=== PATIENT | male | born 1965 | race Caucasian/White ===

== ENCOUNTER → 2019-05-20 | Day surgery (SDC) | payer OTHER ==
[~2019-05-20] VITALS: Ht 180.3 cm; Wt 99.8 kg
[~2019-05-20] MED LIST: ATENOLOL25 MG PO; CARVEDILOL25 MG PO; CEPHALEXIN500 M1 PO; FENOFIBRATE160 MG PO; LISINOPRIL20 MG PO; LISINOPRIL5 MG PO; MEDROL DOSEPAK4 MG PO; METFORMIN HYDR500 MG PO; NORCO 5-325 TA1 EACH PO; OMEPRAZOLE40 MG PO; SIMVASTATIN20 MG PO; SIMVASTATIN40 MG PO; TAGAMET HB200 M1 PO
--- NOTE | ~2019-05-20 | O ---
[place], [place] OPERATIVE NOTE NAME: MAURILIO MCCOY UNIT #: [id number] ROOM: DOCTOR: MURRAY GRIFFITHS MD BIRTHDATE: [birth year] DOS: PREOPERATIVE DIAGNOSIS: Cataract, right eye. POSTOPERATIVE DIAGNOSIS: Cataract, right eye. OPERATION: Extracapsular cataract extraction by phacoemulsification with posterior chamber intraocular lens implantation, right eye. ANESTHESIA: Monitored standby. OPERATIVE FINDINGS AND PROCEDURE: 2% Xylocaine topical anesthetic gel was applied to the eye in the preop area. The patient was taken to the operating room and prepped and draped in the standard fashion for sterile intraocular surgery. A time out procedure was performed verifying correct patient, correct site and corrects lens with Brice Griffiths M.D. The operating microscope was swung into position and the lid speculum was inserted. Using a Mi paracentesis blade, a paracentesis was made through clear cornea. Shugarcaine was injected into the anterior chamber followed by the instillation of air. Next, Trypan blue was painted on the anterior capsule. Viscoelastic was used to fill the anterior chamber. Using a metal keratome a 2.4 mm self-sealing clear corneal cataract incision was made temporally at the limbus. Using a pre-bent 25 gauge cystotome needle, a standard continuous curvilinear capsulorrhexis was performed. The anterior capsule was removed with forceps. The lens nucleus was hydrodissected and phacoemulsified in the posterior chamber. Cortical material was removed with the irrigation aspiration hand piece and the posterior capsule was then polished with a curet under irrigation. The posterior chamber and capsular bag were filled with viscoelastic. An intraocular lens manufactured by [employer], Model AU00T0, 19.5 diopters was then inserted into the posterior chamber. There was a sudden released from the preloaded cartridge upon insertion resulting in a large break in the posterior capsule without forward movement of the vitreous. The lens was positioned with Sinskey hook and spatula so that the haptics were in the sulcus and the optic was captured. Miochol was injected to induce myosis of the pupil. Viscoelastic was removed using the irrigation aspiration handpiece. The anterior chamber was filled with balanced salt solution through the paracentesis. Both the paracentesis site and cataract incisions were hydrated with BSS and verified to be water-tight and self-sealing. Cefuroxime 1 mg/0.1 mL was injected into the anterior chamber through the paracentesis site. The incision checked to be water-tight using a Weck-Sandra sponge. The integrity of the cataract wound and ocular tension were checked. Lid speculum and drapes were removed. The patient was transferred from the operating room to the recovery room in satisfactory condition. [place], [place] OPERATIVE NOTE NAME: MAURILIO MCCOY UNIT #: [id number] ROOM: DOCTOR: MURRAY GRIFFITHS MD BIRTHDATE: [birth year] MURRAY GRIFFITHS MD CM:OPRECORD:OPERATIVE NOTE [id number] MURRYA GRIFFITHS MD 05/20/19 1302 interface
[2019-05-20 08:20] VITALS: BP 117/56
[2019-05-20 10:23] VITALS: BP 121/68
[2019-05-20 10:35] VITALS: BP 117/77
[2019-05-20 10:43] VITALS: BP 114/69
== END | disposition home or self-care (01) ==
LOC: SDC 05-15 09:30
DX: H25.811 Combined forms of age-related cataract, right eye (principal); I10 Essential (primary) hypertension; J44.9 Chronic obstructive pulmonary disease, unspecified; E11.9 Type 2 diabetes mellitus without complications; F17.210 Nicotine dependence, cigarettes, uncomplicated; Z88.8 Allergy status to other drugs, medicaments and biological substances; Z79.899 Other long term (current) drug therapy; Z79.84 Long term (current) use of oral hypoglycemic drugs; Z98.890 Other specified postprocedural states

== ENCOUNTER → 2019-06-16 | Outpatient (CLI) | payer OTHER | END | disposition home or self-care (01) | LOC: LAB 08:37 | DX: R53.83 Other fatigue (principal); R79.89 Other specified abnormal findings of blood chemistry ==

== ENCOUNTER 2019-07-01 08:23 | Emergency (ER) | payer OTHER ==
[~2019-07-01] VITALS: Ht 180.3 cm; Wt 102.1 kg
== END 2019-07-01 09:57 | disposition home or self-care (01) ==
LOC: ED 08:23
DX: J44.1 Chronic obstructive pulmonary disease with (acute) exacerbation (principal); I10 Essential (primary) hypertension; E11.9 Type 2 diabetes mellitus without complications; G89.29 Other chronic pain; F17.200 Nicotine dependence, unspecified, uncomplicated; Z88.6 Allergy status to analgesic agent; Z79.899 Other long term (current) drug therapy

== ENCOUNTER → 2020-06-07 | Outpatient (CLI) | payer OTHER ==
[2020-06-07 11:47] LABS: BASO % 0.5 % (0.0-1.0); EOS # 0.1 10*3/uL (0.0-0.4); EOS % 1.5 % (1.0-4.0); HEMATOCRIT 43.2 % (42.0-52.0); LYMPH # 1.3 10*3/uL (1.3-4.4); MEAN CELL VOLUME 86.7 fl (80.0-94.0); MEAN CORPUSCULAR HGB 29.5 pg (27.0-31.0); MEAN PLATELET VOLUME 9.8 fl (9.6-12.3); MONO # 0.4 10*3/uL (0.1-1.0); MONO % 7.2 % (3.0-9.0); NEUT % 68.1 % (47.0-73.0); PLATELET COUNT AUTOMATED 237 10*3/uL (130-400); RED BLOOD COUNT 4.98 10*6/uL (4.50-5.90); RED CELL DISTRI WIDTH 11.7 % (0-14.5); RETICULOCYTE % 1.49 % (0.50-2.50); WHITE BLOOD COUNT 5.8 10*3/uL (4.8-10.8)
[2020-06-07 11:54] LABS: BILIRUBIN Negative (Negative); BLOOD Negative (Negative); CLARITY Cloudy (Clear); COLOR Yellow (Yellow); GLUCOSE 3+ (Negative); KETONE Negative (Negative); LEUKO ESTERASE Negative (Negative); NITRITE Negative (Negative)
[2020-06-07 11:57] LABS: ALBUMIN 3.7 gm/dl (3.1-4.5); BUN 9 mg/dl (7-24); CHLORIDE 105 mmol/L (98-107); SODIUM 139 mmol/L (136-145)
[2020-06-07 12:16] LABS: BACTERIA 2+
[2020-06-07 12:17] LABS: ALKALINE PHOSPHATASE 44 U/L (45-117); CHOLESTEROL 186 mg/dL (<200); CREATININE 0.99 mg/dL (0.70-1.30); GAMMA GLUTAMYL TRANSPEPTIDASE 92 U/L (15-85); HDL CHOLESTEROL 43 mg/dl (40-60); IRON 79 ug/dL (65-175); LDL CHOLESTEROL 74 mg/dL (9-159); SGOT/AST 22 IU/L (3-35); SGPT/ALT 20 U/L (12-78); TOTAL IRON BINDING CAPACITY 420 ug/dl (250-450); TOTAL PROTEIN 7.5 gm/dL (6.4-8.2); TRIGLYCERIDES 343 mg/dl (<150); VLDL CHOLESTEROL 69 mg/dL (6-40)
== END ==
LOC: LAB 11:25
PROVIDERS: ATTEND Family Medicine
DX: E11.9 Type 2 diabetes mellitus without complications (principal); E78.5 Hyperlipidemia, unspecified; R53.83 Other fatigue; R79.89 Other specified abnormal findings of blood chemistry

== ENCOUNTER 2020-11-11 12:14 | Emergency (ER) | payer OTHER ==
[~2020-11-11] VITALS: Ht 180.3 cm; Wt 99.8 kg
[2020-11-11] MEDS ORDERED: IBUPROFEN600 MG PO (15:10)
== END 2020-11-11 15:18 | disposition home or self-care (01) ==
LOC: ED 12:14
DX: S46.912A Strain of unspecified muscle, fascia and tendon at shoulder and upper arm level, left arm, initial encounter (principal); F17.200 Nicotine dependence, unspecified, uncomplicated; Z88.5 Allergy status to narcotic agent; X50.1XXA Overexertion from prolonged static or awkward postures, initial encounter; Y93.89 Activity, other specified; Y92.69 Other specified industrial and construction area as the place of occurrence of the external cause; Y99.9 Unspecified external cause status

== ENCOUNTER → 2020-11-28 | Outpatient (CLI) | payer OTHER ==
[~2020-11-28] MED LIST changes: +IBUPROFEN600 MG PO
== END | disposition home or self-care (01) ==
LOC: MRI 09:00
PROVIDERS: ATTEND Family Medicine
DX: S46.912A Strain of unspecified muscle, fascia and tendon at shoulder and upper arm level, left arm, initial encounter (principal); X58.XXXA Exposure to other specified factors, initial encounter; Y93.89 Activity, other specified; Y92.89 Other specified places as the place of occurrence of the external cause; Y99.8 Other external cause status

== ENCOUNTER 2021-06-05 19:45 | Emergency (ER) | payer OTHER ==
[~2021-06-05] VITALS: Wt 97.5 kg
== END 2021-06-05 21:27 | disposition home or self-care (01) ==
LOC: ED 19:45
DX: S05.02XA Injury of conjunctiva and corneal abrasion without foreign body, left eye, initial encounter (principal); W22.8XXA Striking against or struck by other objects, initial encounter; Y93.89 Activity, other specified; Y92.89 Other specified places as the place of occurrence of the external cause; Y99.8 Other external cause status

== ENCOUNTER → 2021-06-06 | Outpatient (CLI) | payer OTHER | END | disposition home or self-care (01) | LOC: LAB 14:16 | PROVIDERS: ATTEND Family Medicine | DX: E10.9 Type 1 diabetes mellitus without complications (principal) ==

== ENCOUNTER → 2021-08-28 | Outpatient (CLI) | payer OTHER ==
[2021-08-28 10:25] LABS: BASO % 0.6 % (0.0-1.0); EOS # 0.1 10*3/uL (0.0-0.4); EOS % 2.7 % (1.0-4.0); HEMATOCRIT 41.1 % (42.0-52.0); LYMPH # 1.3 10*3/uL (1.3-4.4); LYMPH % 27.6 % (27.0-41.0); MEAN CELL VOLUME 85.6 fl (80.0-94.0); MEAN PLATELET VOLUME 9.8 fl (9.6-12.3); MONO # 0.5 10*3/uL (0.1-1.0); MONO % 9.4 % (3.0-9.0); NEUT # 2.8 10*3/uL (2.3-7.9); NEUT % 59.1 % (47.0-73.0); PLATELET COUNT AUTOMATED 224 10*3/uL (130-400); RED CELL DISTRI WIDTH 12.3 % (0-14.5); WHITE BLOOD COUNT 4.8 10*3/uL (4.8-10.8)
[2021-08-28 11:02] LABS: ALBUMIN 3.9 gm/dl (3.1-4.5); BUN 13 mg/dl (7-24); CHLORIDE 104 mmol/L (98-107); POTASSIUM 4.4 mmol/L (3.5-5.1); SODIUM 138 mmol/L (136-145)
[2021-08-28 11:28] LABS: ALKALINE PHOSPHATASE 38 U/L (45-117); CREATININE 0.73 mg/dL (0.70-1.30); IRON 107 ug/dL (65-175); SGOT/AST 26 IU/L (3-35); SGPT/ALT 36 U/L (12-78); TOTAL IRON BINDING CAPACITY 438 ug/dl (250-450); TOTAL PROTEIN 7.6 gm/dL (6.4-8.2)
== END | disposition home or self-care (01) ==
LOC: LAB 09:50
PROVIDERS: ATTEND Family Medicine
DX: R79.89 Other specified abnormal findings of blood chemistry (principal); R53.83 Other fatigue; E11.9 Type 2 diabetes mellitus without complications

== ENCOUNTER → 2022-03-02 | Outpatient (CLI) | payer OTHER | END | disposition home or self-care (01) | LOC: COVID19 10:18 | PROVIDERS: ATTEND Internal Medicine | DX: Z20.822 Contact with and (suspected) exposure to COVID-19 (principal) ==

== ENCOUNTER → 2022-03-26 | Outpatient (CLI) | payer OTHER, MEDICAID | END | disposition home or self-care (01) | LOC: COVID19 08:51 | PROVIDERS: ATTEND Internal Medicine | DX: Z20.822 Contact with and (suspected) exposure to COVID-19 (principal) ==

== ENCOUNTER → 2022-07-16 | Outpatient (CLI) | payer OTHER, MEDICAID ==
[2022-07-16 09:20] LABS: BASO % 0.4 % (0.0-1.0); EOS # 0.1 10*3/uL (0.0-0.4); EOS % 2.2 % (1.0-4.0); HEMATOCRIT 39.3 % (42.0-52.0); LYMPH # 0.8 10*3/uL (1.3-4.4); LYMPH % 16.2 % (27.0-41.0); MEAN CELL VOLUME 86.4 fl (80.0-94.0); MEAN CORPUSCULAR HGB 29.5 pg (27.0-31.0); MEAN CORPUSCULAR HGB CONC 34.1 g/dl (33.0-37.0); MEAN PLATELET VOLUME 8.8 fl (9.6-12.3); MONO # 0.4 10*3/uL (0.1-1.0); MONO % 8.1 % (3.0-9.0); NEUT # 3.7 10*3/uL (2.3-7.9); NEUT % 72.9 % (47.0-73.0); PLATELET COUNT AUTOMATED 216 10*3/uL (130-400); RED BLOOD COUNT 4.55 10*6/uL (4.50-5.90); RED CELL DISTRI WIDTH 13.1 % (0-14.5); WHITE BLOOD COUNT 5.1 10*3/uL (4.8-10.8)
[2022-07-16 09:40] LABS: ALKALINE PHOSPHATASE 59 U/L (46-116); BETA-HCG, QUANT < 3.0 mIU/mL (<1); BUN 14 mg/dl (9-23); CHLORIDE 105 mmol/L (98-107); LDH 141 U/L (120-246); POTASSIUM 3.6 mmol/L (3.4-5.1); SGPT/ALT 31 U/L (10-49); TOTAL PROTEIN 6.8 gm/dL (6.0-8.0)
== END | disposition home or self-care (01) ==
LOC: US 07:30 → LAB 07:46
PROVIDERS: Urology; ATTEND Family Medicine
DX: D40.0 Neoplasm of uncertain behavior of prostate (principal); Z12.5 Encounter for screening for malignant neoplasm of prostate; N43.2 Other hydrocele; K82.4 Cholesterolosis of gallbladder; N32.3 Diverticulum of bladder; Z90.49 Acquired absence of other specified parts of digestive tract

== ENCOUNTER → 2022-09-12 | Day surgery (SDC) | payer OTHER ==
[~2022-09-12] VITALS: Ht 180.3 cm; Wt 88.5 kg
[~2022-09-12] MED LIST changes: +CYCLOBENZAPRINE10 MG PO; +ENTRESTO 24 MG1 EACH PO; +NOVOLOG MIX 70/33 ML SC; +TRULICITY0.75 MG/0. SC
[2022-09-12 10:15] VITALS: BP 116/64
[2022-09-12 11:57] VITALS: BP 113/75
[2022-09-12 12:12] VITALS: BP 115/76
[2022-09-12 12:26] VITALS: BP 111/76
== END | disposition home or self-care (01) ==
LOC: SDC 09-07 11:45
PROVIDERS: ATTEND Ophthalmology
DX: E11.36 Type 2 diabetes mellitus with diabetic cataract (principal); H25.812 Combined forms of age-related cataract, left eye; I10 Essential (primary) hypertension; I25.10 Atherosclerotic heart disease of native coronary artery without angina pectoris; J44.9 Chronic obstructive pulmonary disease, unspecified; Z87.891 Personal history of nicotine dependence; Z88.8 Allergy status to other drugs, medicaments and biological substances

== ENCOUNTER 2023-08-27 10:27 | Inpatient (IN) | payer OTHER ==
[~2023-08-27] VITALS: Ht 180.3 cm; Wt 88.5 kg
[2023-08-27 10:34] VITALS: BP 104/64
[2023-08-27 10:54] LABS: BASO % 0.3 % (0.0-1.0); EOS # 0.1 10*3/uL (0.0-0.4); HEMATOCRIT 45.5 % (42.0-52.0); LYMPH # 0.9 10*3/uL (1.3-4.4); MEAN CELL VOLUME 90.1 fl (80.0-94.0); MEAN CORPUSCULAR HGB 30.1 pg (27.0-31.0); MEAN CORPUSCULAR HGB CONC 33.4 g/dl (33.0-37.0); MEAN PLATELET VOLUME 9.2 fl (9.6-12.3); MONO # 0.6 10*3/uL (0.1-1.0); MONO % 7.3 % (3.0-9.0); NEUT # 6.2 10*3/uL (2.3-7.9); NEUT % 79.8 % (47.0-73.0); PLATELET COUNT AUTOMATED 238 10*3/uL (130-400); RED BLOOD COUNT 5.05 10*6/uL (4.50-5.90); RED CELL DISTRI WIDTH 11.8 % (0-14.5); WHITE BLOOD COUNT 7.8 10*3/uL (4.8-10.8)
[2023-08-27 11:04] LABS: ACT PARTIAL THROMBO TIME 27.5 SECONDS (20.0-32.1)
[2023-08-27 11:12] LABS: ALKALINE PHOSPHATASE 56 U/L (46-116); BUN 18 mg/dl (9-23); CHLORIDE 101 mmol/L (98-107); LIPASE 32 U/L (12-53); POTASSIUM 4.3 mmol/L (3.4-5.1); SGPT/ALT 24 U/L (5-49); TOTAL PROTEIN 7.5 gm/dL (6.0-8.0)
[2023-08-27] MEDS ORDERED: ENTRESTO 49 MG1 EACH PO (11:28)
[2023-08-27] MEDS ORDERED: ASPIRIN81 M1 PO (11:29)
[2023-08-27] MEDS ORDERED: ALDACTONE25 M1 PO (11:30)
[2023-08-27] MEDS ORDERED: JARDIANCE10 MG PO (11:30)
[2023-08-27] MEDS ORDERED: CLARITIN10 MG PO (11:31)
[2023-08-27] MEDS ORDERED: BRILINTA90 M1 PO (11:31)
[2023-08-27] MEDS ORDERED: HUMALOG 751 UNIT/0.0 SQ (11:32)
[2023-08-27] MEDS ORDERED: MULTI-VITAMIN1 EACH PO (11:33)
[2023-08-27] MEDS ORDERED: LASIX20 MG PO (11:33)
[2023-08-27] MEDS ORDERED: RANOLAZINE ER500 MG PO (11:35)
[2023-08-27] MEDS ORDERED: ASPIRIN, CHEWABLE 81 MG TAB PO ONE (12:45)
[2023-08-27] MEDS ORDERED: ACETAMINOPHEN 325 MG TAB PO PRN (13:55)
[2023-08-27] MEDS ORDERED: BISACODYL 5 MG TAB PO PRN (13:55)
[2023-08-27] MEDS ORDERED: Ondansetron Hydrochloride 4 MG/2 ML VIAL IV PRN (13:55)
[2023-08-27] MEDS ORDERED: Metoprolol Tartrate 25 MG TAB PO SCH (14:00)
[2023-08-27] MEDS ORDERED: ASPIRIN, CHEWABLE 81 MG TAB PO SCH (14:05)
[2023-08-27 14:51] VITALS: BP 101/67
[2023-08-27 17:56] VITALS: BP 127/79
[2023-08-27] MEDS ORDERED: ATORVASTATIN CALCIUM 40 MG TABLET PO SCH (22:00)
[2023-08-27] MEDS ORDERED: CARVEDILOL 25 MG TAB PO SCH (22:00)
[2023-08-28] MEDS ORDERED: Enoxaparin Sodium 40 MG/0.4 ML SYR SC SCH (10:00)
== END 2023-08-27 18:01 | disposition home or self-care (01) | DRG 313 ==
LOC: ED 10:27 → EDHOLD 12:50
PROVIDERS: Emergency Medicine; ADMIT Internal Medicine; ATTEND Internal Medicine
DX: R07.89 Other chest pain (principal); E87.1 Hypo-osmolality and hyponatremia; I50.22 Chronic systolic (congestive) heart failure; I13.0 Hypertensive heart and chronic kidney disease with heart failure and stage 1 through stage 4 chronic kidney disease, or unspecified chronic kidney disease; I44.7 Left bundle-branch block, unspecified; E66.9 Obesity, unspecified; N18.9 Chronic kidney disease, unspecified; E11.22 Type 2 diabetes mellitus with diabetic chronic kidney disease; E11.65 Type 2 diabetes mellitus with hyperglycemia; J44.9 Chronic obstructive pulmonary disease, unspecified; Z95.5 Presence of coronary angioplasty implant and graft; Z88.5 Allergy status to narcotic agent; Z88.8 Allergy status to other drugs, medicaments and biological substances; Z79.82 Long term (current) use of aspirin; Z79.4 Long term (current) use of insulin; Z79.899 Other long term (current) drug therapy

== ENCOUNTER → 2023-09-13 | Outpatient (CLI) | payer OTHER ==
[~2023-09-13] MED LIST changes: +ALDACTONE25 M1 PO; +ASPIRIN81 M1 PO; +BRILINTA90 M1 PO; +CLARITIN10 MG PO; +ENTRESTO 49 MG1 EACH PO; +HUMALOG 751 UNIT/0.0 SQ; +JARDIANCE10 MG PO; +LASIX20 MG PO; +MULTI-VITAMIN1 EACH PO; +RANOLAZINE ER500 MG PO
[2023-09-13 11:28] LABS: BASO % 0.4 % (0.0-1.0); EOS # 0.1 10*3/uL (0.0-0.4); EOS % 1.6 % (1.0-4.0); HEMATOCRIT 41.9 % (42.0-52.0); LYMPH # 0.8 10*3/uL (1.3-4.4); LYMPH % 16.9 % (27.0-41.0); MEAN CELL VOLUME 90.5 fl (80.0-94.0); MEAN CORPUSCULAR HGB 30.7 pg (27.0-31.0); MEAN CORPUSCULAR HGB CONC 33.9 g/dl (33.0-37.0); MEAN PLATELET VOLUME 9.3 fl (9.6-12.3); MONO # 0.3 10*3/uL (0.1-1.0); MONO % 6.7 % (3.0-9.0); NEUT # 3.7 10*3/uL (2.3-7.9); NEUT % 73.8 % (47.0-73.0); PLATELET COUNT AUTOMATED 209 10*3/uL (130-400); RED BLOOD COUNT 4.63 10*6/uL (4.50-5.90); RED CELL DISTRI WIDTH 11.9 % (0-14.5)
[2023-09-13 11:38] LABS: ACT PARTIAL THROMBO TIME 26.8 SECONDS (20.0-32.1)
[2023-09-13 12:03] LABS: POTASSIUM 4.7 mmol/L (3.4-5.1)
== END ==
LOC: LAB 10:42
PROVIDERS: ATTEND Internal Medicine Clinical Cardiac Electrophysiology
DX: Z01.812 Encounter for preprocedural laboratory examination (principal)

== ENCOUNTER 2023-10-04 08:22 | Emergency (ER) | payer OTHER ==
[~2023-10-04] VITALS: Wt 88.5 kg
[2023-10-04 08:48] LABS: BASO # 0.1 10*3/uL (0.0-0.1); BASO % 0.9 % (0.0-1.0); EOS # 0.1 10*3/uL (0.0-0.4); EOS % 0.9 % (1.0-4.0); HEMATOCRIT 41.2 % (42.0-52.0); LYMPH # 0.7 10*3/uL (1.3-4.4); LYMPH % 10.7 % (27.0-41.0); MEAN CELL VOLUME 92.6 fl (80.0-94.0); MEAN CORPUSCULAR HGB 30.1 pg (27.0-31.0); MEAN CORPUSCULAR HGB CONC 32.5 g/dl (33.0-37.0); MEAN PLATELET VOLUME 9.2 fl (9.6-12.3); MONO # 0.6 10*3/uL (0.1-1.0); MONO % 8.7 % (3.0-9.0); NEUT % 76.2 % (47.0-73.0); PLATELET COUNT AUTOMATED 225 10*3/uL (130-400); RED BLOOD COUNT 4.45 10*6/uL (4.50-5.90); RED CELL DISTRI WIDTH 12.3 % (0-14.5); WHITE BLOOD COUNT 6.6 10*3/uL (4.8-10.8)
[2023-10-04 09:03] LABS: ACT PARTIAL THROMBO TIME 23.8 SECONDS (20.0-32.1)
[2023-10-04 09:09] LABS: ALKALINE PHOSPHATASE 59 U/L (46-116); BUN 23 mg/dl (9-23); CHLORIDE 101 mmol/L (98-107); POTASSIUM 4.3 mmol/L (3.4-5.1); SGPT/ALT 29 U/L (5-49); TOTAL PROTEIN 7.2 gm/dL (6.0-8.0)
== END 2023-10-04 10:54 | disposition home or self-care (01) ==
LOC: ED 08:22
PROVIDERS: Emergency Medicine
DX: T82.119A Breakdown (mechanical) of unspecified cardiac electronic device, initial encounter (principal); S20.213A Contusion of bilateral front wall of thorax, initial encounter; I10 Essential (primary) hypertension; E11.9 Type 2 diabetes mellitus without complications; E78.00 Pure hypercholesterolemia, unspecified; Z88.8 Allergy status to other drugs, medicaments and biological substances; Z88.5 Allergy status to narcotic agent; Z95.5 Presence of coronary angioplasty implant and graft; Z98.890 Other specified postprocedural states; Y82.8 Other medical devices associated with adverse incidents; X58.XXXA Exposure to other specified factors, initial encounter; Y93.89 Activity, other specified; Y92.89 Other specified places as the place of occurrence of the external cause; Y99.8 Other external cause status

== ENCOUNTER 2024-03-07 11:24 | Inpatient (IN) | payer OTHER ==
[~2024-03-07] VITALS: Ht 180.3 cm; Wt 87.2 kg
[2024-03-07 11:42] VITALS: BP 140/90
[2024-03-07 11:57] LABS: BASO % 0.1 % (0.0-1.0); EOS # 0.1 10*3/uL (0.0-0.4); EOS % 0.5 % (1.0-4.0); HEMATOCRIT 47.4 % (42.0-52.0); LYMPH # 0.9 10*3/uL (1.3-4.4); LYMPH % 9.3 % (27.0-41.0); MEAN CELL VOLUME 89.9 fl (80.0-94.0); MEAN CORPUSCULAR HGB 30.4 pg (27.0-31.0); MEAN CORPUSCULAR HGB CONC 33.8 g/dl (33.0-37.0); MEAN PLATELET VOLUME 9.4 fl (9.6-12.3); MONO # 0.5 10*3/uL (0.1-1.0); MONO % 5.2 % (3.0-9.0); NEUT % 84.4 % (47.0-73.0); PLATELET COUNT AUTOMATED 262 10*3/uL (130-400); RED BLOOD COUNT 5.27 10*6/uL (4.50-5.90); RED CELL DISTRI WIDTH 11.9 % (0-14.5); WHITE BLOOD COUNT 9.5 10*3/uL (4.8-10.8)
[2024-03-07 12:13] LABS: POTASSIUM 4.3 mmol/L (3.4-5.1)
[2024-03-07] MEDS ORDERED: SODIUM CHLORIDE 0.9% 1,000 ML IV ONE (12:40)
[2024-03-07] MEDS ORDERED: BISACODYL 10 MG SUPP R PRN (14:30)
[2024-03-07] MEDS ORDERED: BISACODYL 5 MG TAB PO PRN (14:30)
[2024-03-07] MEDS ORDERED: ACETAMINOPHEN 325 MG TAB PO PRN (14:30)
[2024-03-07] MEDS ORDERED: Ondansetron Hydrochloride 4 MG/2 ML VIAL IV PRN (14:30)
[2024-03-07 14:34] VITALS: BP 126/76
[2024-03-07 16:00] VITALS: BP 140/69
[2024-03-07] MEDS ORDERED: NITROGLYCERIN0.4 MG SL (16:15)
[2024-03-07] MEDS ORDERED: DEXTROSE 10 % IN WATER 250 ML IV PRN (16:35)
[2024-03-07] MEDS ORDERED: NITROGLYCERIN 0.4 MG BOT SL PRN (18:20)
[2024-03-07 20:00] VITALS: BP 135/72
[2024-03-07] MEDS ORDERED: SACUBITRIL/VALSARTAN 49 MG-51 MG TABLET PO SCH (22:00)
[2024-03-07] MEDS ORDERED: TICAGRELOR 90 MG TABLET PO SCH (22:00)
[2024-03-07] MEDS ORDERED: CARVEDILOL 25 MG TAB PO SCH (22:00)
[2024-03-07] MEDS ORDERED: INSULIN LISPRO 1 UNIT/0.01 ML SQ SCH (22:00)
[2024-03-07] MEDS ORDERED: SIMVASTATIN 80 MG TABLET PO SCH (22:00)
[2024-03-07] MEDS ORDERED: Ranolazine 500 MG TAB ER PO SCH (22:00)
[2024-03-08] VITALS: BP 119/71
[2024-03-08 06:11] LABS: BASO % 0.2 % (0.0-1.0); EOS # 0.1 10*3/uL (0.0-0.4); HEMATOCRIT 44.4 % (42.0-52.0); LYMPH # 1.3 10*3/uL (1.3-4.4); LYMPH % 14.9 % (27.0-41.0); MEAN CELL VOLUME 91.5 fl (80.0-94.0); MEAN CORPUSCULAR HGB 30.7 pg (27.0-31.0); MEAN CORPUSCULAR HGB CONC 33.6 g/dl (33.0-37.0); MEAN PLATELET VOLUME 9.8 fl (9.6-12.3); MONO # 0.7 10*3/uL (0.1-1.0); MONO % 8.1 % (3.0-9.0); NEUT # 6.5 10*3/uL (2.3-7.9); NEUT % 75.3 % (47.0-73.0); PLATELET COUNT AUTOMATED 208 10*3/uL (130-400); RED BLOOD COUNT 4.85 10*6/uL (4.50-5.90); WHITE BLOOD COUNT 8.7 10*3/uL (4.8-10.8)
[2024-03-08 06:30] LABS: ALKALINE PHOSPHATASE 65 U/L (46-116); BUN 19 mg/dl (9-23); CHLORIDE 101 mmol/L (98-107); CHOLESTEROL 164 mg/dL (<200); LDL CHOLESTEROL 74 mg/dL (9-159); SGPT/ALT 33 U/L (5-49); TOTAL PROTEIN 7.1 gm/dL (6.0-8.0); TRIGLYCERIDES 271 mg/dl (<150)
[2024-03-08 08:00] VITALS: BP 124/69
[2024-03-08] MEDS ORDERED: Enoxaparin Sodium 40 MG/0.4 ML SYR SC SCH (10:00)
[2024-03-08] MEDS ORDERED: EMPAGLIFLOZIN 10 MG TABLET PO SCH (10:00)
[2024-03-08] MEDS ORDERED: ASPIRIN ENTERIC COATED 81 MG TAB PO SCH (10:00)
[2024-03-08 12:00] VITALS: BP 94/59
[2024-03-08 16:00] VITALS: BP 124/83
[2024-03-08 20:00] VITALS: BP 119/65
[2024-03-09] VITALS: BP 91/48
[2024-03-09 06:37] LABS: BASO % 0.3 % (0.0-1.0); EOS # 0.1 10*3/uL (0.0-0.4); EOS % 1.2 % (1.0-4.0); HEMATOCRIT 41.2 % (42.0-52.0); LYMPH # 1.2 10*3/uL (1.3-4.4); LYMPH % 13.9 % (27.0-41.0); MEAN CORPUSCULAR HGB 30.9 pg (27.0-31.0); MEAN CORPUSCULAR HGB CONC 34.7 g/dl (33.0-37.0); MEAN PLATELET VOLUME 9.4 fl (9.6-12.3); MONO # 0.7 10*3/uL (0.1-1.0); MONO % 7.6 % (3.0-9.0); NEUT # 6.6 10*3/uL (2.3-7.9); NEUT % 76.4 % (47.0-73.0); PLATELET COUNT AUTOMATED 188 10*3/uL (130-400); RED BLOOD COUNT 4.63 10*6/uL (4.50-5.90); WHITE BLOOD COUNT 8.7 10*3/uL (4.8-10.8)
[2024-03-09 06:57] LABS: BUN 19 mg/dl (9-23); CHLORIDE 102 mmol/L (98-107); POTASSIUM 3.8 mmol/L (3.4-5.1)
[2024-03-09 08:00] VITALS: BP 107/62
== END 2024-03-09 14:21 | disposition home or self-care (01) | DRG 198 ==
LOC: ED 11:24 → EDHOLD 13:28 → 4E 13:28
PROVIDERS: Nurse Practitioner Family; Student in an Organized Health Care Education/Training Program; ADMIT Internal Medicine; ATTEND Internal Medicine
DX: I25.10 Atherosclerotic heart disease of native coronary artery without angina pectoris (principal); N17.0 Acute kidney failure with tubular necrosis; E87.1 Hypo-osmolality and hyponatremia; I13.0 Hypertensive heart and chronic kidney disease with heart failure and stage 1 through stage 4 chronic kidney disease, or unspecified chronic kidney disease; I50.22 Chronic systolic (congestive) heart failure; E86.0 Dehydration; E78.5 Hyperlipidemia, unspecified; E11.65 Type 2 diabetes mellitus with hyperglycemia; I44.7 Left bundle-branch block, unspecified; D72.9 Disorder of white blood cells, unspecified; N18.9 Chronic kidney disease, unspecified; Y84.8 Other medical procedures as the cause of abnormal reaction of the patient, or of later complication, without mention of misadventure at the time of the procedure; T82 Complications of cardiac and vascular prosthetic devices, implants and grafts; Z88.6 Allergy status to analgesic agent; Z88.8 Allergy status to other drugs, medicaments and biological substances; Z87.891 Personal history of nicotine dependence; Z95.5 Presence of coronary angioplasty implant and graft; Z95.0 Presence of cardiac pacemaker; Z79.4 Long term (current) use of insulin; Y92.89 Other specified places as the place of occurrence of the external cause